=== PATIENT | female | born 1940 | race Caucasian/White ===

== ENCOUNTER 2020-12-15 14:16 | Outpatient (CLI) | payer MEDICARE, OTHER | END 2020-12-15 14:17 | disposition home or self-care (01) | LOC: BICRAD 14:16 | PROVIDERS: ATTEND Student in an Organized Health Care Education/Training Program | DX: M25.571 Pain in right ankle and joints of right foot (principal); M19.071 Primary osteoarthritis, right ankle and foot; M79.89 Other specified soft tissue disorders ==